=== PATIENT | female | born 1970 | race Caucasian/White ===

== ENCOUNTER 2017-07-02 11:58 | Day surgery (SDC) | payer MEDICARE ==
[2017-07-02] MEDS ORDERED: DIPRIVAN 200 MG/20 ML IV ONE (11:59)
[2017-07-02] MEDS ORDERED: Marcaine 0.5% SDV 10 ML IJ ONE (11:59)
[2017-07-02] MEDS ORDERED: Xylocaine-Mpf 2% 5 Ml Vial IJ ONE (11:59)
[2017-07-02] MEDS ORDERED: Xylocaine-Mpf 2 ML IJ ONE (11:59)
[2017-07-02] MEDS ORDERED: Ketamine HCl 50 MG/ML IV ONE (11:59)
[2017-07-02] MEDS ORDERED: Lactated Ringers 1,000 ML IV ONE (11:59)
--- NOTE | 2017-07-02 13:24 | XRAY ---
Indication: Right L3-L4 facet injection. Intraoperative fluoroscopy was provided for 32 seconds. 2 digital spot images submitted for interpretation demonstrates single posterior spinal needle tip projecting over the right L3-L4 facet. Correlate with intraoperative findings/report. Incidental L5-S1 posterior fusion hardware with intervertebral spacer and partially visualized spinal stimulator with leads.
--- NOTE | 2017-07-02 13:29 | XRAY ---
32 seconds fluoroscopy time in surgery for right L3-4 facette injection.
--- NOTE | 2017-07-03 10:49 | OP ---
DATE OF PROCEDURE: 07/02/2017 1251 SURGEON: Robyn Delcid D.O. PREOPERATIVE DIAGNOSIS: Degenerative lumbar spine disease, spondylosis, low back pain. POSTOPERATIVE DIAGNOSIS: Degenerative lumbar spine disease, spondylosis, low back pain. PROCEDURE PERFORMED: Right L4-L3 medial branch block under fluoroscopic guidance. DESCRIPTION OF THE PROCEDURE: The patient was taken to the operating room and placed in the prone position on the table. Skin at the injection site was prepped and draped in sterile fashion. Under fluoroscopy, bony anatomy of the targeted injection site was visualized. Induction agent was given as per anesthesia while vital signs were monitored. Local anesthetic agent of 0.5 cc of 1% lidocaine preservative free was introduced to anesthetize the skin and the subcutaneous tissue through the injection site. Under fluoroscopic guidance, a #20 gauge standard spinal needle was advanced into the target medial branch through the oblique approach. The preservative free 0.5 cc of 1% lidocaine and 0.5 cc of 0.25% Marcaine were injected into each of the targeted medial branch nerve. After the needle was being removed, the skin was cleansed with alcohol and then a bandage was applied. No complications or adverse consequences were observed. The patient was returned to the holding area until stabilized before discharge to home. After the procedure the residual pain level is 0 out of 10 and there was no muscle weakness. The patient will be followed up within ten days after the injection for re-evaluation.
== END 2017-07-02 13:30 | disposition home or self-care (01) ==
LOC: SDC-PAIN 11:58
PROVIDERS: ATTEND Internal Medicine
DX: M46.96 Unspecified inflammatory spondylopathy, lumbar region (principal); M96.1 Postlaminectomy syndrome, not elsewhere classified; M54.5 Low back pain; M47.27 Other spondylosis with radiculopathy, lumbosacral region
CPT/HCPCS: 64493; 64494; 72020; 76000; J2704

== ENCOUNTER 2017-08-06 09:53 | Day surgery (SDC) | payer MEDICARE ==
[2017-08-06] MEDS ORDERED: DIPRIVAN 200 MG/20 ML IV ONE (09:54)
[2017-08-06] MEDS ORDERED: Marcaine 0.5% SDV 10 ML IJ ONE (09:54)
[2017-08-06] MEDS ORDERED: LIDOCAINE HCL 2% 100 MG/5 ML IJ ONE (09:54)
[2017-08-06] MEDS ORDERED: XYLOCAINE-MPF 1% 5ML SDV IJ ONE (09:54)
[2017-08-06] MEDS ORDERED: Lactated Ringers 1,000 ML IV ONE (11:38)
--- NOTE | 2017-08-06 13:01 | XRAY ---
Indication: Right L4-L5 MBB. Intraoperative fluoroscopy was provided for 38 seconds. 3 digital spot images submitted for interpretation demonstrates posterior spinal needles. Last image demonstrates needle tips projecting over the right L4-L5 and L5-S1 facets. Correlate with intraoperative findings/report. Incidental L5-S1 posterior fusion surgery with spinal hardware and spinal stimulator device with leads.
--- NOTE | 2017-08-06 16:00 | XRAY ---
38 seconds fluoroscopy time in surgery for right L4-L5 MBB.
--- NOTE | 2017-08-07 08:29 | OP ---
DATE OF PROCEDURE: 08/06/2017 1150 SURGEON: Robyn Delcid D.O. PREOPERATIVE DIAGNOSIS: Degenerative lumbar spine disease, spondylosis, low back pain. POSTOPERATIVE DIAGNOSIS: Degenerative lumbar spine disease, spondylosis, low back pain. PROCEDURE PERFORMED: Right L4, L2 medial branch block under fluoroscopic guidance. DESCRIPTION OF THE PROCEDURE: The patient was taken to the operating room and placed in the prone position on the table. Skin at the injection site was prepped and draped in sterile fashion. Under fluoroscopy, bony anatomy of the targeted injection site was visualized. Induction agent was given as per anesthesia while vital signs were monitored. Local anesthetic agent of 0.5 cc of 1% lidocaine preservative free was introduced to anesthetize the skin and the subcutaneous tissue through the injection site. Under fluoroscopic guidance, a #20 gauge standard spinal needle was advanced into the target medial branch through the oblique approach. The preservative free 0.5 cc of 1% lidocaine and 0.5 cc of 0.25% Marcaine were injected into each of the targeted medial branch nerve. After the needle was being removed, the skin was cleansed with alcohol and then a bandage was applied. No complications or adverse consequences were observed. The patient was returned to the holding area until stabilized before discharge to home. The patient was initially sent to have medial branch block for right L4-L5 facet joint. However, there is no access to L3 medial branch due to the spinal cord stimulator implantation directly blocked access to L3 medial branch. Also the patient had a laminectomy due to the hardware blockage to access of L3 medial branch on the right side. Therefore right L4 and L2 medial branch block were completed today for this patient. Preoperative pain level is 10 out of 10 and postoperative pain level is 0 out of 10. The patient will be followed up within ten days after the injection for re-evaluation.
== END 2017-08-06 12:30 | disposition home or self-care (01) ==
LOC: SDC-PAIN 09:53
PROVIDERS: ATTEND Internal Medicine
DX: M46.96 Unspecified inflammatory spondylopathy, lumbar region (principal); M54.5 Low back pain; M96.1 Postlaminectomy syndrome, not elsewhere classified; M47.816 Spondylosis without myelopathy or radiculopathy, lumbar region; M54.16 Radiculopathy, lumbar region; Z79.891 Long term (current) use of opiate analgesic
CPT/HCPCS: 64493; 64494; 72020; 77003; J2704

== ENCOUNTER 2017-09-10 10:16 | Day surgery (SDC) | payer MEDICARE ==
[2017-09-10] MEDS ORDERED: DIPRIVAN 200 MG/20 ML IV ONE (10:17)
[2017-09-10] MEDS ORDERED: Marcaine Mpf 0.5% Vial 30 Ml IJ ONE (10:17)
[2017-09-10] MEDS ORDERED: XYLOCAINE-MPF 1% 5ML SDV IJ ONE (10:17)
[2017-09-10] MEDS ORDERED: Lactated Ringers 1,000 ML IV ONE (11:54)
--- NOTE | 2017-09-10 19:17 | XRAY ---
Exam: Single view spine from 09/10/2017. Comparison: Single view spine from 08/06/2017. Indication: Right L4-L5 facet RFA. Findings: 33 seconds of intraoperative fluoroscopy time was utilized with the C-arm. 4 PA images were obtained. I again see evidence of prior L5-S1 posterior surgical fusion with interpedicular rods and 4 pedicle screws. Apparent spacer device is seen in the projection of L5-S1. This is unchanged. Correlate clinically. Spinal neurostimulator is seen with leads representing no change. Spinal needle tips are seen projected at the lateral aspect of the right L4-L5 and L5-S1 facet joints. Correlate with intraoperative findings/report.
--- NOTE | 2017-09-11 08:05 | XRAY ---
33 seconds fluoroscopy time in surgery for right L4-5 facette RFA.
--- NOTE | 2017-09-11 08:58 | OP ---
AMENDED REPORT: DATE OF PROCEDURE: 09/10/2017 1239 SURGEON: Robyn Delcid D.O. PREOPERATIVE DIAGNOSES: Degenerative lumbosacral spine disease, spondylosis, low back pain. POSTOPERATIVE DIAGNOSES: Degenerative lumbosacral spine disease, spondylosis, low back pain. PROCEDURE PERFORMED: Right L4-L3 medial branch radiofrequency ablation under fluoroscopic guidance. The medication used for this procedure is 2 cc preservative-free 0.5% Marcaine. The local anesthetic agent used is 6 cc preservative-free 1% lidocaine. Before the procedure the patient stated that she had spinal cord stimulator implantation since 2008. The spinal cord stimulator has not been working. The patient was informed that she will go back to the physician who did spinal cord stimulator implantation for interrogation. The patient would like to proceed to the radiofrequency ablation today. DESCRIPTION OF PROCEDURE: The patient was taken to the operating room and laid in the prone position on the table. The skin over the injection site was prepped and draped in sterile fashion. Under fluoroscopy bony anatomy of the target injection site was visualized. Induction agent was given as per anesthesia while vital signs were monitored. Local anesthetic agent was introduced to anesthetize the skin and the subcutaneous tissue through the injection site. Under fluoroscopic guidance a standard size spinal needle with cannula was advanced into the target medial branch nerve as per standard protocol. Before the radiofrequency ablation motor and sensory nerve testing was conducted as per protocol. Under the safety guidance which ensured no motor nerves being involved, radiofrequency ablation was conducted at 80 degrees C for 90 seconds as per standard protocol. After the spinal needle with the cannula was removed the skin was cleansed with alcohol and then a bandage was applied. No complications or adverse occurrences were observed. Preoperative pain level is 10 out of 10 and the postoperative pain level is 0 out of 10. The patient was returned to the holding area until stabilized before being discharged to home. The patient will be followed up within 10 days after the procedure for reevaluation.
== END 2017-09-10 13:25 | disposition home or self-care (01) ==
LOC: SDC-PAIN 10:16
PROVIDERS: ATTEND Internal Medicine
DX: M47.816 Spondylosis without myelopathy or radiculopathy, lumbar region (principal); M46.96 Unspecified inflammatory spondylopathy, lumbar region; M54.5 Low back pain; M96.1 Postlaminectomy syndrome, not elsewhere classified; M54.16 Radiculopathy, lumbar region; Z79.891 Long term (current) use of opiate analgesic
CPT/HCPCS: 64635; 64636; 72020; 77003; J2704

== ENCOUNTER 2018-01-14 09:07 | Day surgery (SDC) | payer MEDICARE ==
[2018-01-14] MEDS ORDERED: Marcaine 0.5% SDV 10 ML IJ ONE (09:08)
[2018-01-14] MEDS ORDERED: DIPRIVAN 200 MG/20 ML IV ONE (09:08)
[2018-01-14] MEDS ORDERED: Xylocaine 1% Vial 30 ML PF IJ ONE (09:08)
[2018-01-14] MEDS ORDERED: Lactated Ringers 1,000 ML IV ONE (10:09)
--- NOTE | 2018-01-14 13:12 | XRAY ---
Indication: Coccygeal injection. Intraoperative fluoroscopy was provided for 14 seconds. 3 digital spot images submitted for interpretation demonstrates single posterior spinal needle tip at the sacrococcygeal junction. Correlate with intraoperative findings/report.
--- NOTE | 2018-01-14 13:25 | XRAY ---
14 seconds fluoroscopy time in surgery for injection to coccyx area.
== END 2018-01-14 10:40 | disposition home or self-care (01) ==
LOC: SDC-PAIN 09:07
PROVIDERS: ATTEND Psychiatry & Neurology Pain Medicine
DX: M53.3 Sacrococcygeal disorders, not elsewhere classified (principal)
CPT/HCPCS: 64520; 72220; 76000; J2001; J2704

== ENCOUNTER 2018-02-25 10:00 | Day surgery (SDC) | payer MEDICARE ==
[2018-02-25] MEDS ORDERED: DIPRIVAN 200 MG/20 ML IV ONE (10:01)
[2018-02-25] MEDS ORDERED: Xylocaine 1% Vial 30 ML PF IJ ONE (10:01)
[2018-02-25] MEDS ORDERED: Depo-Medrol 40 MG/ML IM ONE (10:01)
[2018-02-25] MEDS ORDERED: Sodium Chloride 0.9(Preservative Free) 10 ML IJ ONE (10:01)
[2018-02-25] MEDS ORDERED: Lactated Ringers 1,000 ML IV ONE (12:38)
--- NOTE | 2018-02-25 12:41 | XRAY ---
Indication: S3-S4 SCARLET. Intraoperative fluoroscopy was provided for 26 seconds. 3 digital spot images submitted for interpretation demonstrates posterior spinal needle tip projecting over the S3-S4 level. Correlate with intraoperative findings/report.
--- NOTE | 2018-02-25 12:47 | XRAY ---
26 seconds of fluoroscopy was used in surgery for SCARLET of level S 3&4.
== END 2018-02-25 11:45 | disposition home or self-care (01) ==
LOC: SDC-PAIN 10:00
PROVIDERS: ATTEND Psychiatry & Neurology Pain Medicine
DX: M54.5 Low back pain (principal)
CPT/HCPCS: 62323; 72220; 77003; J1030; J2001; J2704; Q9966

== ENCOUNTER 2018-03-25 09:26 | Day surgery (SDC) | payer MEDICARE ==
[2018-03-25] MEDS ORDERED: Xylocaine-Mpf 2% 5 Ml Vial IJ ONE (09:27)
[2018-03-25] MEDS ORDERED: Depo-Medrol 40 MG/ML IM ONE (09:27)
[2018-03-25] MEDS ORDERED: DIPRIVAN 200 MG/20 ML IV ONE (09:27)
--- NOTE | 2018-03-25 12:15 | XRAY ---
Indication: Bilateral L3-S1 MBB. Intraoperative fluoroscopy was provided for 53 seconds. Single digital spot image submitted for interpretation demonstrates posterior spinal needle tips projecting over the expected course of the left and right L3-S1 nerve roots. Correlate with intraoperative findings/report. Incidental bilateral L5-S1 posterior spinal hardware with intervertebral spacers and partially visualized spinal stimulator device/leads.
--- NOTE | 2018-03-25 12:17 | XRAY ---
53 seconds fluoroscopy time in surgery for bilateral L3-S1 MBB.
[2018-03-25] MEDS ORDERED: Lactated Ringers 1,000 ML IV ONE (14:45)
== END 2018-03-25 11:30 | disposition home or self-care (01) ==
LOC: SDC-PAIN 09:26
PROVIDERS: ATTEND Psychiatry & Neurology Pain Medicine
DX: M62.830 Muscle spasm of back (principal); M54.16 Radiculopathy, lumbar region
CPT/HCPCS: 64493; 64494; 64495; 72020; 77003; J1030; J2704